=== PATIENT | female | born 1945 | race Caucasian/White ===

== ENCOUNTER 2017-07-09 11:00 | Emergency (ER) | payer MEDICARE, MEDICAID ==
[~2017-07-09] VITALS: Ht 165.1 cm; Wt 84.5 kg
[~2017-07-09 11:00] MED LIST: LEVO100T9 PO; OMEP20CA10 PO; SIMV40TA5 PO
[2017-07-09] MEDS ORDERED: ONDANSETRON HCL 4MG/2ML VIAL IV STA (16:21)
[2017-07-09] MEDS ORDERED: SODIUM CHLORIDE 0.9% 500 ML IV ONE (16:21)
[2017-07-09] MEDS ORDERED: KETOROLAC 30MG/ML VIAL IV STA (16:21)
[2017-07-09 16:50] LABS: BASOPHILS % 0.3 % (0.0-2.0); EOSINOPHILS % 0.1 % (0.0-5.0); HEMATOCRIT. 43.7 % (36.0-48.0); HEMOGLOBIN. 14.8 g/dL (12.0-16.0); LYMPHOCYTES % 16.6 % (20.0-50.0); MEAN CORPUSCULAR HEMOGLOBIN 29.5 pg (28.0-32.0); MEAN CORPUSCULAR VOLUME 87.3 fL (81.0-99.0); MONOCYTES % 4.1 % (2.0-8.0); NEUTROPHILS % 78.9 % (40.0-76.0); PLATELET 219 x1000/uL (130-400); RED CELL DISTRIBUTION WIDTH 14.6 % (11.6-14.6)
[2017-07-09 16:54] LABS: PROTHROMBIN TIME 10.6 sec (9.4-11.6)
[2017-07-09 16:59] LABS: CHLORIDE 106 mEq/L (98-107)
[2017-07-09] MEDS ORDERED: IOHEXOL-300 100 ML BOTTLE ONE (19:18)
[2017-07-09 19:54] VITALS: BP 142/79
== END 2017-07-09 20:23 | disposition home or self-care (01) ==
LOC: ER 13:23
DX: M54.40 Lumbago with sciatica, unspecified side (principal); R10.9 Unspecified abdominal pain; R11.2 Nausea with vomiting, unspecified; I10 Essential (primary) hypertension; E11.9 Type 2 diabetes mellitus without complications; E05.90 Thyrotoxicosis, unspecified without thyrotoxic crisis or storm; E03.9 Hypothyroidism, unspecified; Z95.5 Presence of coronary angioplasty implant and graft
CPT/HCPCS: 36415; 74177; 80053; 83690; 84484; 85025; 85610; 93005; 96361; 96374; 96375; 99285; J1885; J2405; J7030; Q9967

== ENCOUNTER 2018-12-02 11:00 | Emergency (ER) | payer MEDICARE, MEDICAID ==
[~2018-12-02] VITALS: Ht 165.1 cm; Wt 84.0 kg
[~2018-12-02 11:00] MED LIST changes: -OMEP20CA10 PO; +OMEP20CA5 PO
[2018-12-02] MEDS ORDERED: KETOROLAC 60MG/2ML VIAL IM ONE (11:45)
[2018-12-02 11:53] VITALS: BP 148/83
== END 2018-12-02 12:06 | disposition home or self-care (01) ==
LOC: ER 11:00
DX: M25.512 Pain in left shoulder (principal); E11.9 Type 2 diabetes mellitus without complications; I10 Essential (primary) hypertension; E78.00 Pure hypercholesterolemia, unspecified; E05.90 Thyrotoxicosis, unspecified without thyrotoxic crisis or storm; Z98.61 Coronary angioplasty status; Z98.890 Other specified postprocedural states
CPT/HCPCS: 96372; 99283; J1885

== ENCOUNTER 2019-06-24 11:13 | Day surgery (SDC) | payer MEDICARE, MEDICAID ==
[~2019-06-24] VITALS: Ht 162.6 cm; Wt 74.8 kg
[~2019-06-24 11:13] MED LIST changes: +OMEP20CA14 PO; -OMEP20CA5 PO; +SIMV-46 PO; -SIMV40TA5 PO
[2019-06-24] MEDS ORDERED: SODIUM CHLORIDE 0.9% 1,000 ML IV SCH (12:20)
[2019-06-24] MEDS ORDERED: CLOP75TA4 MT (12:48)
[2019-06-24] MEDS ORDERED: CHOL40002 PO (12:48)
[2019-06-24] MEDS ORDERED: ASPI-1158 MT (12:48)
[2019-06-24] MEDS ORDERED: SITA100T11 MT (12:48)
[2019-06-24] MEDS ORDERED: LINA145C PO (12:48)
[2019-06-24] MEDS ORDERED: ATOR40TA70 MT (12:48)
[2019-06-24] MEDS ORDERED: TRAM50TA3 PO (12:48)
[2019-06-24] MEDS ORDERED: BACITRACIN 50,000 UNITS/VIAL ONE (12:50)
[2019-06-24] MEDS ORDERED: BACITRACIN 15GM TUBE TOP ONE (12:50)
[2019-06-24] MEDS ORDERED: BUPIVACAINE HCL/PF 0.25% (2.5MG/ML) 10ML ONE (12:50)
[2019-06-24] MEDS ORDERED: EPINEPHRINE 1:1000 1 MG/ML AMP ONE (12:51)
[2019-06-24] MEDS ORDERED: BUPIVACAINE HCL/EPINEPHRINE/PF 0.5%/0.0005 10ML ONE (12:51)
[2019-06-24] MEDS ORDERED: SKIN ADHESIVE 0.7 GM EA TOP ONE (12:52)
[2019-06-24] MEDS ORDERED: VANCOMYCIN HCL 1 GM/VIAL ONE (13:29)
[2019-06-24] MEDS ORDERED: MORPHINE SULFATE/PF 1MG/ML 10ML AMP ONE (13:29)
[2019-06-24] MEDS ORDERED: GENTAMICIN SULF 40MG/ML 2ML VIAL ONE (13:29)
[2019-06-24] MEDS ORDERED: ALBUMIN HUMAN 12.5G/250ML (5%) IV ONE (14:48)
[2019-06-24] MEDS ORDERED: SODIUM CHLORIDE 0.9% 1,000 ML IV ONE (16:20)
[2019-06-24] MEDS ORDERED: HYDROMORPHONE HCL/PF 2MG/ML CPJ IV PRN (16:30)
[2019-06-24] MEDS ORDERED: MORPHINE SULFATE 2 MG/ML CPJ (NOT FOR IM USE) IV PRN (16:30)
[2019-06-24] MEDS ORDERED: ONDANSETRON HCL 4MG/2ML INJ IV PRN (16:30)
[2019-06-24] MEDS ORDERED: MEPERIDINE HCL/PF 25MG/ML CPJ IV PRN (16:30)
== END 2019-06-24 18:30 | disposition home or self-care (01) ==
LOC: OR 11:13
PROVIDERS: ATTEND Orthopaedic Surgery
DX: M75.122 Complete rotator cuff tear or rupture of left shoulder, not specified as traumatic (principal); I25.10 Atherosclerotic heart disease of native coronary artery without angina pectoris; E78.00 Pure hypercholesterolemia, unspecified; E03.9 Hypothyroidism, unspecified; E11.22 Type 2 diabetes mellitus with diabetic chronic kidney disease; I12.9 Hypertensive chronic kidney disease with stage 1 through stage 4 chronic kidney disease, or unspecified chronic kidney disease; N18.2 Chronic kidney disease, stage 2 (mild); M17.9 Osteoarthritis of knee, unspecified; Z68.31 Body mass index [BMI] 31.0-31.9, adult; Z79.84 Long term (current) use of oral hypoglycemic drugs; Z79.899 Other long term (current) drug therapy; Z79.82 Long term (current) use of aspirin; Z98.890 Other specified postprocedural states
CPT/HCPCS: 29826; 29827; 82962; 88304; 88311; C1713; J0171; J0330; J0690; J1100; J2250; J2405; J2704; J2765; J2795; J3010; J3490; P9041; A4565; J1580; J2274; J2370; J2710; J3370